=== PATIENT | female | born 1995 | race Caucasian/White ===

== ENCOUNTER 2017-10-28 10:47 | Day surgery (SDC) | payer OTHER ==
[~2017-10-28] VITALS: Ht 177.8 cm; Wt 87.5 kg
[2017-10-28] MEDS ORDERED: COM5 PO (11:31)
[2017-10-28] MEDS ORDERED: DROS1TAB PO (11:31)
[2017-10-28] MEDS ORDERED: fentaNYL 0.05 MG/ML VIAL ONE (12:11)
[2017-10-28] MEDS ORDERED: MIDAZOLAM 2 MG/2 ML VIAL ONE (12:11)
== END 2017-10-28 13:27 | disposition home or self-care (01) ==
LOC: MMU 10:47 → MED 10:47
PROVIDERS: ATTEND Internal Medicine Gastroenterology
DX: K31.89 Other diseases of stomach and duodenum (principal); K59.00 Constipation, unspecified; J45.909 Unspecified asthma, uncomplicated; Z91.030 Bee allergy status; Z79.899 Other long term (current) drug therapy; Z98.890 Other specified postprocedural states; Z72.89 Other problems related to lifestyle; Z87.891 Personal history of nicotine dependence; Z90.89 Acquired absence of other organs
CPT/HCPCS: 36415; 43239; 86677; J2250; J7030; J3010